=== PATIENT | female | born 1990 | race Caucasian/White ===

== ENCOUNTER 2017-07-07 00:17 | Inpatient (IN) | payer BC ==
[2017-07-07] MEDS ORDERED: Misoprostol 25 MCG (1/4 of 100 MCG) Tab ONE (20:32)
[2017-07-07] MEDS: Misoprostol 25 MCG (1/4 of 100 MCG) Tab VAG SCH (20:40)
[2017-07-07] MEDS ORDERED: Ondansetron 4 MG/2 ML SDV IVPUSH PRN (20:57)
[2017-07-07] MEDS ORDERED: Sodium Chloride 0.9% 10 ML Syringe FLUSH PRN (20:57)
[2017-07-07] MEDS ORDERED: Lidocaine 1% 50 ML MDV INJECT ONE (20:57)
--- NOTE | 2017-07-07 21:15 | PCM.LDHP ---
L&D History of Present Illness - General Date of Service: 07/07/17 Admit Problem/Dx: Patient Status Order with Admit Dx/Problem 07/07/17 20:57 Patient Status [ADT] Routine Admission Diagnosis/Problem Admission Diagnosis/Problem Normal Source of Information: Patient History Limitations: Reports: No Limitations - History of Present Illness Introduction:: Reason for admission: 40-3/7 week intrauterine , elective induction of labor History of present illness patient is a 26-year-old 1 para 0 white female was admitted for elective induction of labor. Her OVI was 07/04/2017 placing her at 40-3/7 weeks gestational age. She is admitted for Cytotec cervical ripening and Pitocin induction to follow. The medication, risks, benefits and alternatives including waiting for onset of natural labor discussed with the patient. She appears to understand, wishes to proceed. We do an history 1 para 0. OVI 07/04/2017 is based on a certain last menstrual period which started on 09/27/2016 and is supported by an ultrasound on 12/05/2016, 02/24/2017 and 04/09/2017. Patient's course relatively unremarkable. She was a centering patient. Her group B strep screen is negative. Watkins testing was negative. Patient plans to breast-feed. She declined genetic evaluation. She did have a corneal abrasion on the left side during the course of her . Her first visit was early in the at approximately 10 weeks gestation. On first full evaluation clinic her weight is 127.2 pounds last evaluation clinic was 153 6 pounds for a 26.4 pound weight gain. Vital signs remained stable throughout the course and her fundal height growth was appropriate. Laboratory testing and shows blood to be O+ with negative and may screen. Prescription nasal hemoglobin was 13.9 and platelets were 206,000. She is rubella immune. RPR is nonreactive. Hepatitis B surface antigen and HIV Novak were negative. Chlamydia and gonorrhea assays were both negative. Second trimester labs included a hemoglobin of 12.5-normal. Her platelets are 180,001 hour GTT was. Allergies: None Medications: vitamins daily Past medical history: 1. ASCUS changes on Pap smear 2005 Past surgical history: 1. Breast enlargement procedure 2014 2. Oral surgery 2006 Family history: Mother and father are alive and well. Father does have hypertension. 2 brothers are alive and well. Maternal grandmother is alive with a history of stroke, brain tumor-benign, sarcoidosis, adult-onset diabetes mellitus. Paternal grandfather alive in hospice care, has a rare cancer which is terminal. Paternal grandmother is alive with aneurysm on her heart. Paternal grandfather age 59. Paternal uncle with an MT in his 50s. No bleeding, clotting, or anesthesia problems noted in the family. Social history: Patient is . is Al. She lives in [place] and is a teacher at the middle school. She is a college graduate. She does not use any significant muscle alcohol, drugs or tobacco. Review of systems: In general patient hassignificant concerns. Has been relatively unremarkable . Skin: Negative Cardiovascular: No chest pain or exercise intolerance Respiratory no shortness of breath or respiratory infection symptoms Breasts: Changes associated . GI: Negative : Increased abdominal size secondary , no other concerns noted. Musculoskeletal: Occasional edema otherwise unremarkable Neurological: Normal. Physical exam: In general patient is well-developed well-nourished, pleasant female who appears in no acute distress and is alert and oriented 3. She appears her stated age Weight last evaluation clinic was 153.6 pounds pregravid weight 127.2. Height is 5 feet 3. Pregravid body mass index is 21.3. Most recent blood pressure was 117/64 on 06/29/2017. Skin is warm dry without lesions. HEENT, neck and back within normal aunts and prepped lungs are clear with good breath sounds in all lung herrera. Cardiovascular exam shows regular rate and rhythm without murmurs. Breasts exam is deferred at this time. Abdomen is protuberant with last fundal height in clinic at 39 cm. Baby in vertex presentation by Darell maneuvers. Cervix is closed-1 cm, 85% effaced, -3 station, posterior Extremities and neurological exam grossly within normal limits. - Related Data Allergies/Adverse Reactions: Allergies Allergy/AdvReac Type Severity Reaction Status Date / Time No Known Allergies Allergy Verified 07/07/17 20:47 Home Medications: Home Meds Vit W-Ca,Fe,FA(<1 mg) [ Vitamins] 1 tab PO DAILY 07/07/17 [ History] Past Medical History Gastrointestinal History: Reports: GERD, Other (See Below) Other Gastrointestinal History: does not take meds for GERD. Genitourinary History: Reports: UTI, Recurrent - Past Surgical History Female Surgical History: Reports: Breast Implant Social & Family History - Tobacco Use Smoking Status *Q: Never Smoker Years of Tobacco use: 1 Second Hand Smoke Exposure: No - Caffeine Use Caffeine Use: Reports: Coffee - Alcohol Use Days Per Week of Alcohol Use: 0 (No previous DWI, etc.) - Recreational Drug Use Recreational Drug Use: No Drug Use in Last 12 Months: No - Living Situation & Occupation Living situation: Reports: , Single, with Significant Other Occupation: Employed H&P Review of Systems - Review of Systems: Review Of Systems: See Below L&D Exam - Exam Exam: See Below - Vital Signs Weight: 70.806 kg Problem List Initiated/Reviewed/Updated: Yes Orders Last 24hrs: Active Orders 24 hr Category Date Time Status Patient Status [ADT] Routine ADT 07/07/17 20:57 Ordered Activity as Tolerated [RC] PFP Care 07/07/17 20:57 Ordered Communication Order [RC] ASDIRECTED Care 07/07/17 20:57 Ordered Heart Tones [RC] ASDIRECTED Care 07/07/17 20:58 Ordered Notify Provider [RC] PFP Care 07/07/17 20:57 Ordered Notify Provider [RC] PRN Care 07/07/17 20:57 Ordered Peripheral IV Care [RC] . DIRECTED Care 07/07/17 20:58 Ordered Pump Management, Intrathecal [RC] ASDIRECTED Care 07/07/17 20:58 Ordered Vital Signs [RC] PER UNIT ROUTINE Care 07/07/17 20:57 Ordered Regular Diet [DIET] Diet 07/07/17 Dinner Ordered CBC WITH AUTO DIFF [HEME] Stat Lab 07/07/17 20:57 Ordered Lactated Ringers [Ringers, Lactated] 1,000 ml Med 07/07/17 21:00 Ordered IV ASDIRECTED Lidocaine 1% [Xylocaine 1%] Med 07/07/17 20:57 Once 10 ml INJECT ONETIME ONE Misoprostol [Cytotec] Med 07/07/17 21:00 Ordered 25 mcg VAG Q3H Ondansetron [Zofran] Med 07/07/17 20:57 Ordered 4 mg IVPUSH Q4H PRN Vit W-Ca,Fe,FA(<1 mg) [ Vitamins] Med 07/08/17 09:00 Ordered 1 tab PO DAILY Sodium Chloride 0.9% [Saline Flush] Med 07/07/17 20:57 Ordered 10 ml FLUSH ASDIRECTED PRN Electronic Heart Tones Ext w TOCO [WOMSER] Oth 07/07/17 20:57 Ordered Routine Electronic Heart Tones Internal [WOMSER] Per Unit Oth 07/07/17 20:57 Ordered Routine Peripheral IV Insertion Adult [OM.PC] Routine Oth 07/07/17 20:57 Ordered Resuscitation Status Routine Resus Stat 07/07/17 20:57 Ordered Medication Orders Lactated Ringer's (Ringers, Lactated) 1,000 mls @ 100 mls/hr IV ASDIRECTED ADRIANA Lidocaine HCl (Xylocaine 1%) 10 ml INJECT ONETIME ONE Stop: 07/07/17 20:58 Misoprostol (Cytotec) 25 mcg VAG Q3H ADRIANA Ondansetron HCl (Zofran) 4 mg IVPUSH Q4H PRN PRN Reason: Nausea/Vomiting Prenat Multivit/[place]/Iron/Folic Ac ( Plus Iron) 1 each PO DAILY ADRIANA Sodium Chloride (Saline Flush) 10 ml FLUSH ASDIRECTED PRN PRN Reason: Keep Vein Open Assessment/Plan Comment:: 1. Intrauterine at 40-3/7 weeks gestational age, admitted for elective induction of labor 2. Relatively unremarkable . 3. Watkins testing 01/07/2017-negative 4. Group B strep screen negative 5. Patient plans to breast-feed. Plan: 1. Cytotec 25 g per vagina 3 doses then switched to Pitocin IV for induction. 2. CBC. 3. Intermittent monitoring 4. Anticipate normal spontaneous vaginal delivery
[2017-07-07] MEDS ORDERED: ePHEDrine 50 MG/ML SDV IVPUSH PRN (22:05)
[2017-07-07] MEDS ORDERED: diphenhydrAMINE 50 MG/ML SDV IVPUSH PRN (22:05)
[2017-07-07] MEDS ORDERED: fentaNYL 100 MCG/2 ML SDV EPIDUR PRN (22:05)
[2017-07-07] MEDS ORDERED: Bupivacaine/fentaNYL/NS 100 ML Bag EPIDUR SCH (22:15)
[2017-07-08] MEDS: Misoprostol 25 MCG (1/4 of 100 MCG) Tab VAG SCH ×2 (03:13)
[2017-07-08] MEDS ORDERED: Oxytocin/Lactated Ringers 10 UNIT/1,000 ML BAG IV SCH (03:15)
[2017-07-08] MEDS: Aluminum Hydroxide/Magnesium Hydroxide/Simethicone Susp 30 ML Cup PO PRN ×2 (03:21→17:13)
[2017-07-08] MEDS: Lactated Ringers 1,000 ML IV SCH ×7 (06:00→22:55)
--- NOTE | 2017-07-08 06:01 | PCM.SN ---
- Free Text/Narrative Note: Evaluation shows patient to be moderately uncomfortable. Vital signs are stable , patient is afebrile. Contractions occurring approximately every 2-5 minutes, moderate intensity. Cervix is 1 cm, 90% effaced, 0 station, vertex presentation, soft, intact. Anterior. heart tones: Reassuring with good variability and accelerations. Assessment/plan: Patient has finished 2 doses of Cytotec and will be started on Pitocin for induction this am. Epidural when necessary for labor analgesia.
[2017-07-08] MEDS ORDERED: Prenatal Multivitamin with Calcium/Folic Acid/Iron Tab PO SCH (09:00)
[2017-07-08] MEDS ORDERED: diphenhydrAMINE 50 MG/ML SDV IVPUSH PRN (09:27)
[2017-07-08] MEDS ORDERED: Ondansetron 4 MG/2 ML SDV IVPUSH PRN (09:27)
[2017-07-08] MEDS ORDERED: ePHEDrine 50 MG/ML SDV IVPUSH PRN (09:27)
[2017-07-08] MEDS ORDERED: fentaNYL 100 MCG/2 ML SDV EPIDUR PRN (09:27)
--- NOTE | 2017-07-08 09:27 | PCM.PREANE ---
Preanesthetic Assessment - Procedure Proposed Procedure: XU - Anesthesia/Transfusion/Family Hx Anesthesia History: Prior Anesthesia Without Reaction Family History of Anesthesia Reaction: No Transfusion History: No Prior Transfusion(s) - Review of Systems General: No Symptoms Pulmonary: No Symptoms Cardiovascular: No Symptoms Gastrointestinal: Other (GERD ) Neurological: No Symptoms Other: Reports: None - Physical Assessment NPO Status Date: 07/08/17 NPO Status Time: 08:00 O2 Sat by Pulse Oximetry: 100 Respiratory Rate: 15 Vital Signs: Last Vital Signs Temp 36.9 C 07/07/17 20:57 Pulse 99 07/07/17 20:57 Resp 15 07/07/17 20:57 BP 117/71 07/07/17 20:57 Pulse Ox 100 07/07/17 20:57 Height: 1.6 m Weight: 70.806 kg ASA Class: 2 Mental Status: Alert & Oriented x3 Airway Class: Mallampati = 1 Dentition: Reports: Normal Dentition Thyro-Mental Finger Breadths: 3 Mouth Opening Finger Breadths: 3 ROM/Head Extension: Full Lungs: Clear to Auscultation, Normal Respiratory Effort Cardiovascular: Regular Rate, Regular Rhythm - Lab Values: Laboratory Last Values WBC 8.89 K/mm3 (3.98-10.04) 07/07/17 20:15 RBC 5.11 M/mm3 (3.98-5.22) 07/07/17 20:15 Hgb 15.0 gm/L (11.2-15.7) 07/07/17 20:15 Hct 44.5 % (34.1-44.9) 07/07/17 20:15 MCV 87.1 fl (79.4-94.8) 07/07/17 20:15 MCH 29.4 pg (25.6-32.2) 07/07/17 20:15 MCHC 33.7 g/dl (32.2-35.5) 07/07/17 20:15 RDW Std Deviation 41.1 fL (36.4-46.3) 07/07/17 20:15 Plt Count 120 K/mm3 (182-369) L 07/07/17 20:15 MPV 11.4 fl (9.4-12.3) 07/07/17 20:15 Neut % (Auto) 73.6 % (34.0-71.1) H 07/07/17 20:15 Lymph % (Auto) 14.5 % (19.3-51.7) L 07/07/17 20:15 Crawford % (Auto) 9.7 % (4.7-12.5) 07/07/17 20:15 Eos % (Auto) 1.3 (0.7-5.8) 07/07/17 20:15 Baso % (Auto) 0.2 % (0.1-1.2) 07/07/17 20:15 Neut # (Auto) 6.54 K/mm3 (1.56-6.13) H 07/07/17 20:15 Lymph # (Auto) 1.29 K/mm3 (1.18-3.74) 07/07/17 20:15 Crawford # (Auto) 0.86 K/mm3 (0.24-0.36) H 07/07/17 20:15 Eos # (Auto) 0.12 K/mm3 (0.04-0.36) 07/07/17 20:15 Baso # (Auto) 0.02 K/mm3 (0.01-0.08) 07/07/17 20:15 - Allergies Allergies/Adverse Reactions: Allergies Allergy/AdvReac Type Severity Reaction Status Date / Time No Known Allergies Allergy Verified 07/07/17 20:47 - Blood Blood Available: No Product(s) Available: None - Anesthesia Plan Pre-Op Medication Ordered: None - Acknowledgements Anesthesia Type Planned: MAC Pt an Appropriate Candidate for the Planned Anesthesia: Yes Alternatives and Risks of Anesthesia Discussed w Pt/Guardian: Yes Pt/Guardian Understands and Agrees with Anesthesia Plan: Yes PreAnesthesia Questionnaire Gastrointestinal History: Reports: GERD, Other (See Below) Other Gastrointestinal History: does not take meds for GERD. Genitourinary History: Reports: UTI, Recurrent INTENSIVIST History: Reports: Other (See Below) Other OB/BYN History: HPV 2006. Colposcopy 2006 Psychiatric History: Reports: Anxiety - Past Surgical History Female Surgical History: Reports: Breast Implant - SUBSTANCE USE Smoking Status *Q: Never Smoker Second Hand Smoke Exposure: No Days Per Week of Alcohol Use: 0 (No previous DWI, etc.) Recreational Drug Use History: No - HOME MEDS Home Medications: Home Meds Vit W-Ca,Fe,FA(<1 mg) [ Vitamins] 1 tab PO DAILY 07/07/17 [ History] - CURRENT (IN HOUSE) MEDS Current Meds: Current Medications Al Hydroxide/Mg Hydroxide (Mag-Al Plus) 30 ml PO Q8H PRN PRN Reason: Heartburn Last Admin: 07/08/17 03:21 Dose: 30 ml Diphenhydramine HCl (Benadryl) 25 mg IVPUSH Q6H PRN PRN Reason: Itching Ephedrine Sulfate (Ephedrine Sulfate) 5 mg IVPUSH ASDIRECTED PRN PRN Reason: HYPOTENTSION Fentanyl (Sublimaze) 100 mcg EPIDUR Q3H PRN PRN Reason: PAIN Fentanyl/Bupivacaine HCl (Fentanyl/Bupivacaine/Ns 2 Mcg-0.125% 100 Ml) 100 ml EPIDUR ASDIRECTED ADRIANA Lactated Ringer's (Ringers, Lactated) 1,000 mls @ 100 mls/hr IV ASDIRECTED ADRIANA Last Admin: 07/08/17 06:00 Dose: 100 mls/hr Oxytocin/Lactated Ringer's (Pitocin In Lr 10 Units/1,000 Ml) 10 unit in 1,000 mls @ 12 mls/hr IV TITRATE ADRIANA; 2 MUNITS/MIN PRN Reason: Protocol Last Titration: 07/08/17 08:45 Dose: 6 munits/min, 36 mls/hr Ondansetron HCl (Zofran) 4 mg IVPUSH Q4H PRN PRN Reason: Nausea/Vomiting Prenat Multivit/Health Care Social Worker/Iron/Folic Ac ( Plus Iron) 1 each PO DAILY ADRIANA Sodium Chloride (Saline Flush) 10 ml FLUSH ASDIRECTED PRN PRN Reason: Keep Vein Open Discontinued Medications Lidocaine HCl (Xylocaine 1%) 10 ml INJECT ONETIME ONE Stop: 07/07/17 20:58 Misoprostol (Cytotec) Confirm Administered Dose 25 mcg .ROUTE .STK-MED ONE Stop: 07/07/17 20:33 Last Admin: 07/07/17 22:03 Dose: Not Given Misoprostol (Cytotec) 25 mcg VAG Q3H ADRIANA Stop: 07/08/17 03:01 Last Admin: 07/08/17 03:13 Dose: Not Given
[2017-07-08] MEDS ORDERED: Bupivacaine/fentaNYL/NS 100 ML Bag EPIDUR SCH (09:30)
[2017-07-08] MEDS ORDERED: Acetaminophen 325 MG Tab PO PRN (17:45)
[2017-07-09] MEDS ORDERED: Lidocaine 1% 50 ML MDV ONE (00:09)
--- NOTE | 2017-07-09 01:08 | PCM.SN ---
- Free Text/Narrative Note: Delivery note: Diane is a 26-year-old 1 now para 1001 white female who is admitted on the evening of 07/07/2017 for Cytotec cervical ripening. 40-4/7 weeks gestational age with an OVI of 07/04/2017. She had 2 doses of Cytotec 0.25 g3 hours apart. With this patient had significant cervical ripening became at least 1-2 cm dilated/90% effaced/0 station/mid position/soft. Pitocin was started at that time and patient progressed with labor induction. She made slow but steady progress and at approximately midday artificial rupture membranes was undertaken with resultant clear amniotic fluid. She made steady progression until 2028 hrs. at which time she became completely dilated. Epidural was used for labor analgesia. Patient was allowed to labor down. She began pushing at approximately 2108 hrs. At approximately 2350 hrs. patient became very fatigued and discussion was held with her concerning some vacuum extraction assistance. The procedure, risks, benefits, alternatives of care including continued pushing versus a were discussed in detail with the patient and her . They appeared to understand and wished to proceed with vacuum extraction delivery. Silastic cup was applied to the baby's head and over the course of 3 contractions patient delivered a baby in a direct occiput anterior position. Significant molding was noted. Vacuum negative pressure was released in between contractions. Contractions were short with pushing only for approximately 45 seconds each. No Pop offs were encountered. Midline episiotomy was made. Baby delivered with some difficulty. Large baby noted but no shoulder dystocia was noted. Baby was placed on mom's abdomen. The cord was clamped 2 and cut. Umbilical cord had 3 vessels present. She was taken to the warmer, dried and stimulated. Baby had Apgars of 7 and 9, a length of 21 inches, and weighed 3700 g (8 lbs. 3 oz.). The baby was born at 0017 hours on 07/09/2017. The patient is noted to have a partial third-degree laceration but no evidence of fourth degree laceration. The patient had an epidural on boardgiven her recently good analgesia. The area of the peritoneum had been further infiltrated with lidocaine 1% approximately 10 mL. The third-degree laceration was repaired in routine fashion and the remainder of the episiotomy was repaired fashion all with 3-0 Monocryl. No problems were encountered. Placenta then delivered at 0036 hours, complete and intact. It delivered in a [place] fashion. Rectal exam was performed at the end of the repair and no fourth degree laceration was noted. Estimated blood loss was 200 mL. Patient began nursing the baby. Condition: Good
[2017-07-09] MEDS ORDERED: Acetaminophen 325 MG Tab PO PRN (01:09)
[2017-07-09] MEDS ORDERED: Lanolin 100% Cream 7 GM Tube TOP PRN (01:09)
[2017-07-09] MEDS: Ibuprofen 600 MG Tab PO PRN ×5 (02:44→21:02)
[2017-07-09] MEDS: Witch Hazel Medicated Pads 100/Jar TOP PRN (02:45)
[2017-07-09] MEDS: Benzocaine/Menthol 20%-0.5% Spray 56 GM Canister TOP PRN (02:46)
--- NOTE | 2017-07-09 06:34 | PCM.SN ---
- Free Text/Narrative Note: Diane is doing well this morning. It is her day of delivery. Minimal lochia. Somewhat sore from pushing. Has been voiding without concerns. She is nursing without problems. Us Assessment/plan: Day of delivery. Routine care.
--- NOTE | 2017-07-09 07:09 | PCM48HPAN ---
Post Anesthesia Note - EVALUATION WITHIN 48HRS OF ANESTHETIC Vital Signs in Normal Range: Yes Respiratory Function Stable: Yes Airway Patent: Yes Cardiovascular Function Stable: Yes Hydration Status Stable: Yes Pain Control Satisfactory: Yes Nausea and Vomiting Control Satisfactory: Yes Mental Status Recovered: Yes - COMMENTS/OBSERVATIONS Free Text/Narrative:: Patient states epidural was patchy in areas of pain control. Patient states she is exhausted and appears very fatigued. Patient happy with SPOT [facility]AYER's overall bedside manner.
[2017-07-09] MEDS ORDERED: Bupivacaine 0.25% 10 ML SDV ONE (22:22)
[2017-07-09] MEDS: Docusate Sodium 100 MG Cap PO PRN (22:32)
[2017-07-10] MEDS: Ibuprofen 600 MG Tab PO PRN ×5 (01:35→21:21)
[2017-07-10] MEDS: Prenatal Multivitamin with Calcium/Folic Acid/Iron Tab PO SCH ×2 (07:51→13:30)
[2017-07-10] MEDS: Docusate Sodium 100 MG Cap PO PRN ×2 (07:51→21:22)
--- NOTE | 2017-07-10 11:51 | PCM.SN ---
- Free Text/Narrative Note: General patient is doing very well. Since still has her catheter in place. She had difficulty voiding last night, had had a residual urine of 1000 mL earlier in the day. Catheter was left in overnight. She will have it removed when she is up and about and will try to void again. Patient is afebrile, vital signs stable. Patient is up and around, ambulating reasonably well. She does not feel lightheaded or dizzy. Lochia is minimal. She is nursing with good results. Uterus is nontender, and umbilicus, firm. Legs were mildly edematous bilaterally . White blood count is 15. 55, hemoglobin is 17.8, platelet count is 130 Assessment: 1. day 1 reasonably well, anemia moderate severe but minimally symptomatic 2. In a retention yesterday. Catheter still in place will attempt catheter out later today. Plan: 1. Increase iron to 3 times a day 1 patient is discharged home will take stool softeners as needed 2. Decreased activity and increased fluid intake until hemoglobin increases. 3. Home tomorrow.
[2017-07-10] MEDS: Witch Hazel Medicated Pads 100/Jar TOP PRN (13:27)
[2017-07-10] MEDS: Benzocaine/Menthol 20%-0.5% Spray 56 GM Canister TOP PRN (21:21)
[2017-07-11] MEDS: Ibuprofen 600 MG Tab PO PRN ×2 (01:03→06:33)
[2017-07-11] MEDS: Prenatal Multivitamin with Calcium/Folic Acid/Iron Tab PO SCH (08:50)
[2017-07-11] MEDS: Docusate Sodium 100 MG Cap PO PRN (08:51)
--- NOTE | 2017-07-11 09:51 | PCM.SN ---
- Free Text/Narrative Note: Post Progress Note PPD # 2 Subjective: Doing well overall. Ambulating without difficulty. Lochia minimal. Voiding without difficulty. Tolerating regular diet without nausea or vomiting. Pain controlled with oral medications. Breast feeding with bottle supplementation with minimal difficulty. Objective: Vitals: Vital Signs - 24 hr 07/10/17 07/10/17 07/10/17 12:19 20:00 20:26 Temperature 36.4 C Temperature [ 36.7 C Temporal] Pulse, 88 109 H Peripheral Respiratory 16 16 Rate Blood Pressure 110/62 119/72 O2 Sat by Pulse 95 98 Oximetry 07/11/17 04:29 Temperature Temperature [ Temporal] Pulse, 86 Peripheral Respiratory 18 Rate Blood Pressure 96/64 O2 Sat by Pulse 97 Oximetry Physical Exam General: Alert and oriented, no acute distress Lungs: Clear to auscultation bilaterally Heart: Regular rate and rhythm Abdomen: Soft, minimal appropriate tenderness, non-distended, fundus midline, nontender, and below the umbilicus Extremities: Trace bilateral lower extremity edema to shins ASSESSMENT: 26-year-old female G 1 P 001 s/p vacuum-assisted vaginal delivery PPD #2, complicated by history of abnormal Pap smear and urinary retention on day #0 and 1, Pearce removed on day #1 and able to void without difficulty. PLAN: Doing well Breast feeding with bottle supplementation with minimal difficulty. Assist as needed Lochia minimal. Continue to monitor for appropriate lochia. Continue routine care Anticipate discharge home today Sha Barbour MD 9:50 AM 07/11/2017
--- NOTE | 2017-07-11 10:01 | PCM.DCSUM1 ---
Discharge Summary - Hospital Course Free Text/Narrative:: Delivery note: Diane is a 26-year-old 1 now para 1001 white female who is admitted on the evening of 07/07/2017 for Cytotec cervical ripening. 40-4/7 weeks gestational age with an OVI of 07/04/2017. She had 2 doses of Cytotec 0.25 g3 hours apart. With this patient had significant cervical ripening became at least 1-2 cm dilated/90% effaced/0 station/mid position/soft. Pitocin was started at that time and patient progressed with labor induction. She made slow but steady progress and at approximately midday artificial rupture membranes was undertaken with resultant clear amniotic fluid. She made steady progression until 2028 hrs. at which time she became completely dilated. Epidural was used for labor analgesia. Patient was allowed to labor down. She began pushing at approximately 2108 hrs. At approximately 2350 hrs. patient became very fatigued and discussion was held with her concerning some vacuum extraction assistance. The procedure, risks, benefits, alternatives of care including continued pushing versus a were discussed in detail with the patient and her . They appeared to understand and wished to proceed with vacuum extraction delivery. Silastic cup was applied to the baby's head and over the course of 3 contractions patient delivered a baby in a direct occiput anterior position. Significant molding was noted. Vacuum negative pressure was released in between contractions. Contractions were short with pushing only for approximately 45 seconds each. No Pop offs were encountered. Midline episiotomy was made. Baby delivered with some difficulty. Large baby noted but no shoulder dystocia was noted. Baby was placed on mom's abdomen. The cord was clamped 2 and cut. Umbilical cord had 3 vessels present. She was taken to the warmer, dried and stimulated. Baby had Apgars of 7 and 9, a length of 21 inches, and weighed 3700 g (8 lbs. 3 oz.). The baby was born at 0017 hours on 07/09/2017. The patient is noted to have a partial third-degree laceration but no evidence of fourth degree laceration. The patient had an epidural on boardgiven her recently good analgesia. The area of the peritoneum had been further infiltrated with lidocaine 1% approximately 10 mL. The third-degree laceration was repaired in routine fashion and the remainder of the episiotomy was repaired fashion all with 3-0 Monocryl. No problems were encountered. Placenta then delivered at 0036 hours, complete and intact. It delivered in a B[place]on fashion. Rectal exam was performed at the end of the repair and no fourth degree laceration was noted. Estimated blood loss was 200 mL. Patient began nursing the baby. Condition: Good HPI Initial Comments: Delivery note: Diane is a 26-year-old 1 now para 1001 white female who is admitted on the evening of 07/07/2017 for Cytotec cervical ripening. 40-4/7 weeks gestational age with an OVI of 07/04/2017. She had 2 doses of Cytotec 0.25 g3 hours apart. With this patient had significant cervical ripening became at least 1-2 cm dilated/90% effaced/0 station/mid position/soft. Pitocin was started at that time and patient progressed with labor induction. She made slow but steady progress and at approximately midday artificial rupture membranes was undertaken with resultant clear amniotic fluid. She made steady progression until 2028 hrs. at which time she became completely dilated. Epidural was used for labor analgesia. Patient was allowed to labor down. She began pushing at approximately 2108 hrs. At approximately 2350 hrs. patient became very fatigued and discussion was held with her concerning some vacuum extraction assistance. The procedure, risks, benefits, alternatives of care including continued pushing versus a were discussed in detail with the patient and her . They appeared to understand and wished to proceed with vacuum extraction delivery. Silastic cup was applied to the baby's head and over the course of 3 contractions patient delivered a baby in a direct occiput anterior position. Significant molding was noted. Vacuum negative pressure was released in between contractions. Contractions were short with pushing only for approximately 45 seconds each. No Pop offs were encountered. Midline episiotomy was made. Baby delivered with some difficulty. Large baby noted but no shoulder dystocia was noted. Baby was placed on mom's abdomen. The cord was clamped 2 and cut. Umbilical cord had 3 vessels present. She was taken to the warmer, dried and stimulated. Baby had Apgars of 7 and 9, a length of 21 inches, and weighed 3700 g (8 lbs. 3 oz.). The baby was born at 0017 hours on 07/09/2017. The patient is noted to have a partial third-degree laceration but no evidence of fourth degree laceration. The patient had an epidural on boardgiven her recently good analgesia. The area of the peritoneum had been further infiltrated with lidocaine 1% approximately 10 mL. The third-degree laceration was repaired in routine fashion and the remainder of the episiotomy was repaired fashion all with 3-0 Monocryl. No problems were encountered. Placenta then delivered at 0036 hours, complete and intact. It delivered in a [place] fashion. Rectal exam was performed at the end of the repair and no fourth degree laceration was noted. Estimated blood loss was 200 mL. Patient began nursing the baby. Condition: Good Brief History: Delivery note: Diane is a 26-year-old 1 now para 1001 white female who is admitted on the evening of 07/07/2017 for Cytotec cervical ripening. 40-4/7 weeks gestational age with an OVI of 07/04/2017. She had 2 doses of Cytotec 0.25 g3 hours apart. With this patient had significant cervical ripening became at least 1-2 cm dilated/90% effaced/0 station/mid position/soft. Pitocin was started at that time and patient progressed with labor induction. She made slow but steady progress and at approximately midday artificial rupture membranes was undertaken with resultant clear amniotic fluid. She made steady progression until 2028 hrs. at which time she became completely dilated. Epidural was used for labor analgesia. Patient was allowed to labor down. She began pushing at approximately 2108 hrs. At approximately 2350 hrs. patient became very fatigued and discussion was held with her concerning some vacuum extraction assistance. The procedure, risks, benefits, alternatives of care including continued pushing versus a were discussed in detail with the patient and her . They appeared to understand and wished to proceed with vacuum extraction delivery. Silastic cup was applied to the baby's head and over the course of 3 contractions patient delivered a baby in a direct occiput anterior position. Significant molding was noted. Vacuum negative pressure was released in between contractions. Contractions were short with pushing only for approximately 45 seconds each. No Pop offs were encountered. Midline episiotomy was made. Baby delivered with some difficulty. Large baby noted but no shoulder dystocia was noted. Baby was placed on mom's abdomen. The cord was clamped 2 and cut. Umbilical cord had 3 vessels present. She was taken to the warmer, dried and stimulated. Baby had Apgars of 7 and 9, a length of 21 inches, and weighed 3700 g (8 lbs. 3 oz.). The baby was born at 0017 hours on 07/09/2017. The patient is noted to have a partial third-degree laceration but no evidence of fourth degree laceration. The patient had an epidural on boardgiven her recently good analgesia. The area of the peritoneum had been further infiltrated with lidocaine 1% approximately 10 mL. The third-degree laceration was repaired in routine fashion and the remainder of the episiotomy was repaired fashion all with 3-0 Monocryl. No problems were encountered. Placenta then delivered at 0036 hours, complete and intact. It delivered in a [place] fashion. Rectal exam was performed at the end of the repair and no fourth degree laceration was noted. Estimated blood loss was 200 mL. Patient began nursing the baby. Condition: Good - Discharge Data Discharge Date: 07/11/17 Discharge Disposition: Home, Self-Care 01 Condition: Good - Discharge Diagnosis/Problem(s) (1) 40 weeks gestation of SNOMED Code(s): 28436945 ICD Code: Z3A.40 - 40 WEEKS GESTATION OF Status: Acute Current Visit: Yes (2) Vacuum extractor delivery, delivered SNOMED Code(s): 192069066 ICD Code: O66.5 - ATTEMPTED APPLICATION OF VACUUM EXTRACTOR AND FORCEPS Status: Acute Current Visit: Yes (3) Third degree laceration of perineum during delivery, SNOMED Code(s): 427984309 ICD Code: O70.20 - THIRD DEGREE PERINEAL LACERATION DURING DELIVERY, UNSP Status: Acute Current Visit: Yes (4) Abnormal Pap smear of cervix SNOMED Code(s): 565254254 ICD Code: R87.619 - UNSP ABNORMAL CYTOLOG FINDINGS IN SPECMN FROM CERVIX UTERI Status: Acute Current Visit: Yes - Patient Summary/Data Operative Procedure(s) Performed: Vacuum-assisted vaginal delivery with episiotomy Complications: Partial third-degree laceration repaired at time of delivery Consults: None Hospital Course: Aniyah Taylor is a 26-year-old G1 now P1001 who was admitted for elective induction of labor on 07/07/2017. At time of admission her cervix was closed. She was GBS negative. She was given 2 doses of Cytotec 25 mcg for cervical ripening. She was transitioned to Pitocin for augmentation of labor. She had artificial rupture membranes with clear fluid. She had an epidural for anesthesia. She progressed to complete and pushing but became fatigued during pushing. A midline episiotomy was made and she had a vacuum-assisted vaginal delivery on 07/10/2017 at 0017. Apgars of 7 and 9. weight of 3700 g (8 lbs. 3 oz.). The patient had a partial third-degree laceration that was repaired in normal fashion. Her course was complicated by urinary retention on day #0 and a Pearce catheter was placed for 24 hours. She was otherwise meeting milestones with ambulation without difficulty, tolerating regular diet without nausea or vomiting, pain controlled with oral medications and minimal lochia. She was breast-feeding with bottle supplementation without difficulty. On day #1 she had her Pearce catheter removed and she was able to void without difficulty. In the morning of day #2 she continued to meet all milestones as above. She desired to be discharged home in the morning of day #2. She will follow up with Dr. De Anda in the clinic in 2 weeks or earlier as needed. - Patient Instructions Diet: Regular Diet as Tolerated Activity: As Tolerated Activity, Other: Nothing in the vagina for 6 weeks Driving: May Drive Today Showering/Bathing: May Shower Notify Provider of: Fever, Increased Pain, Swelling and Redness, Drainage, Nausea and/or Vomiting - Discharge Plan Home Medications: Home Meds Vit W-Ca,Fe,FA(<1 mg) [ Vitamins] 1 tab PO DAILY 07/07/17 [ History] Acetaminophen [Tylenol] 650 mg PO Q6H PRN tablet 07/11/17 [Rx] Benzocaine/Menthol [Dermoplast Pain Relief Dewar] 1 spray TOP ASDIRECTED PRN canister 07/11/17 [Rx] Docusate Sodium [Colace] 100 mg PO BID PRN cap 07/11/17 [Rx] Ibuprofen [IJD: Ibuprofen] 600 mg PO Q4H PRN tablet 07/11/17 [Rx] Lanolin [Lansinoh HPA] 1 applic TOP ASDIRECTED PRN tube 07/11/17 [Rx] Patient Handouts: Disposable Sitz Bath, Vaginal Laceration, Pelvic Rest, Home Care Instructions for Mom, How to Take a Sitz Bath, Vaginal Delivery, Care After , Care of a Perineal Tear Referrals: Peng De Anda MD [Primary Care Provider] - (Follow-up in 2 weeks or earlier as needed for routine visit.) - Discharge Summary/Plan Comment DC Time >30 min.: No - Patient Data Vitals - Most Recent: Last Vital Signs Temp 36.7 C 07/10/17 20:00 Pulse 86 07/11/17 04:29 Resp 18 07/11/17 04:29 BP 96/64 07/11/17 04:29 Pulse Ox 97 07/11/17 04:29 Weight - Most Recent: 70.806 kg I&O - Last 24 hours: Intake & Output 07/10/17 07/11/17 07/11/17 22:59 06:59 14:59 Intake Total 0 Balance 0 Med Orders - Current: Current Medications Acetaminophen (Tylenol) 650 mg PO Q4H PRN PRN Reason: mild pain or fever Benzocaine/Menthol (Dermoplast Pain Relief Dewar) 0 gm TOP ASDIRECTED PRN PRN Reason: Perineal Comfort Measure Last Admin: 07/10/17 21:21 Dose: 1 canister Docusate Sodium (Colace) 100 mg PO BID PRN PRN Reason: Constipation Last Admin: 07/11/17 08:51 Dose: 100 mg Emollient Ointment (Lansinoh Hpa) 0 gm TOP ASDIRECTED PRN PRN Reason: Sore Nipples Ibuprofen (Motrin) 600 mg PO Q4H PRN PRN Reason: Mild pain or fever Last Admin: 07/11/17 06:33 Dose: 600 mg Prenat Multivit/Collier/Iron/Folic Ac ( Plus Iron) 1 each PO DAILY ADRIANA Last Admin: 07/11/17 08:50 Dose: 1 each Witch Olga (Tucks) 1 pad TOP ASDIRECTED PRN PRN Reason: Hemorrhoid pain Last Admin: 07/10/17 13:27 Dose: 1 canister Discontinued Medications Acetaminophen (Tylenol) 650 mg PO Q6H PRN PRN Reason: Headache/Pain Last Admin: 07/08/17 21:31 Dose: 650 mg Al Hydroxide/Mg Hydroxide (Mag-Al Plus) 30 ml PO Q8H PRN PRN Reason: Heartburn Last Admin: 07/08/17 17:13 Dose: 30 ml Bupivacaine HCl (Sensorcaine-Mpf 0.25%) 10 ml .ROUTE .STK-MED ONE Stop: 07/09/17 22:23 Diphenhydramine HCl (Benadryl) 25 mg IVPUSH Q6H PRN PRN Reason: Itching Diphenhydramine HCl (Benadryl) 25 mg IVPUSH Q6H PRN PRN Reason: Pruritis Ephedrine Sulfate (Ephedrine Sulfate) 5 mg IVPUSH ASDIRECTED PRN PRN Reason: HYPOTENTSION Ephedrine Sulfate (Ephedrine Sulfate) 5 mg IVPUSH ASDIRECTED PRN PRN Reason: Hypotension Fentanyl (Sublimaze) 100 mcg EPIDUR Q3H PRN PRN Reason: PAIN Fentanyl (Sublimaze) 100 mcg EPIDUR Q3H PRN PRN Reason: Pain Last Admin: 07/08/17 13:31 Dose: 100 mcg Fentanyl/Bupivacaine HCl (Fentanyl/Bupivacaine/Ns 2 Mcg-0.125% 100 Ml) 100 ml EPIDUR ASDIRECTED [facility] Last Admin: 07/08/17 20:46 Dose: 100 ml Fentanyl/Bupivacaine HCl (Fentanyl/Bupivacaine/Ns 2 Mcg-0.125% 100 Ml) 100 ml EPIDUR ASDIRECTED [facility] Last Admin: 07/08/17 13:33 Dose: 100 ml Lactated Ringer's (Ringers, Lactated) 1,000 mls @ 100 mls/hr IV ASDIRECTED [facility] Last Admin: 07/08/17 22:55 Dose: 500 mls/hr Oxytocin/Lactated Ringer's (Pitocin In Lr 10 Units/1,000 Ml) 10 unit in 1,000 mls @ 12 mls/hr IV TITRATE ADRIANA; 2 MUNITS/MIN PRN Reason: Protocol Last Titration: 07/08/17 23:25 Dose: 10 munits/min, 60 mls/hr Lidocaine HCl (Xylocaine 1%) 10 ml INJECT ONETIME ONE Stop: 07/07/17 20:58 Last Admin: 07/09/17 00:00 Dose: 10 ml Lidocaine HCl (Xylocaine 1%) Confirm Administered Dose 50 ml .ROUTE .STK-MED ONE Stop: 07/09/17 00:10 Misoprostol (Cytotec) Confirm Administered Dose 25 mcg .ROUTE .STK-MED ONE Stop: 07/07/17 20:33 Last Admin: 07/07/17 22:03 Dose: Not Given Misoprostol (Cytotec) 25 mcg VAG Q3H [facility] Stop: 07/08/17 03:01 Last Admin: 07/08/17 03:13 Dose: Not Given Ondansetron HCl (Zofran) 4 mg IVPUSH Q4H PRN PRN Reason: Nausea/Vomiting Ondansetron HCl (Zofran) 4 mg IVPUSH ONETIME PRN PRN Reason: Nausea/Vomiting Prenat Multivit/Collier/Iron/Folic Ac ( Plus Iron) 1 each PO DAILY [facility] Last Admin: 07/08/17 13:49 Dose: Not Given Sodium Chloride (Saline Flush) 10 ml FLUSH ASDIRECTED PRN PRN Reason: Keep Vein Open *Q Meaningful Use (DIS) - VTE *Q VTE Criteria *Q: - Stroke *Q Stroke Criteria *Q: - AMI *Q AMI Criteria *Q:
[2017-07-11 13:49] VITALS: BP 122/77
== END 2017-07-11 15:38 | disposition home or self-care (01) | DRG 560 ==
LOC: JD.OB 00:17 → OBSVTOIN 07-09 00:17
PROVIDERS: ADMIT Obstetrics & Gynecology; ATTEND Obstetrics & Gynecology
PROC: 10D07Z6 Extraction of Products of Conception, Vacuum, Via Natural or Artificial Opening (ICD-10-PCS; principal; 2017-07-09)
PROC: 0W8NXZZ Division of Female Perineum, External Approach (ICD-10-PCS; 2017-07-09)
PROC: 10907ZC Drainage of Amniotic Fluid, Therapeutic from Products of Conception, Via Natural or Artificial Opening (ICD-10-PCS; 2017-07-09)
PROC: 3E033VJ Introduction of Other Hormone into Peripheral Vein, Percutaneous Approach (ICD-10-PCS; 2017-07-09)
PROC: 3E0P7VZ Introduction of Hormone into Female Reproductive, Via Natural or Artificial Opening (ICD-10-PCS; 2017-07-09)
PROC: 00HU33Z Insertion of Infusion Device into Spinal Canal, Percutaneous Approach (ICD-10-PCS; 2017-07-09)
PROC: 3E0R3BZ Introduction of Anesthetic Agent into Spinal Canal, Percutaneous Approach (ICD-10-PCS; 2017-07-09)
DX: O70.20 Third degree perineal laceration during delivery, unspecified (principal); Z3A.41 41 weeks gestation of pregnancy; Z37.0 Single live birth
CPT/HCPCS: 36415; 51701; 51702; 59300; 59409; 85025; 85027; A9270-GY; J2590; J3010; J7120

== ENCOUNTER 2019-07-08 19:45 | Inpatient (IN) | payer BC ==
[2019-07-08] MEDS ORDERED: Nalbuphine 10 MG/ML Syringe IVPUSH PRN (20:03)
[2019-07-08] MEDS ORDERED: Sodium Chloride 0.9% 10 ML Syringe FLUSH PRN (20:03)
[2019-07-08] MEDS ORDERED: Lactated Ringers 1,000 ML IV SCH (20:15)
[2019-07-08] MEDS ORDERED: Oxytocin/Lactated Ringers 10 UNIT/1,000 ML BAG IV SCH ×2 (20:15→21:29)
[2019-07-08] MEDS ORDERED: Lidocaine 1% 50 ML MDV INJECT ONE (20:35)
[2019-07-08] MEDS: Ibuprofen 600 MG Tab PO PRN (20:50)
--- NOTE | 2019-07-08 21:23 | PCM.LDHP ---
L&D History of Present Illness - General Date of Service: 07/08/19 Admit Problem/Dx: Patient Status Order with Admit Dx/Problem 07/08/19 20:03 Patient Status [ADT] Routine Admission Diagnosis/Problem Admission Diagnosis/Problem Vaginal delivery Source of Information: Patient History Limitations: Reports: No Limitations - History of Present Illness Introduction:: Diane Taylor is a 28 year old female at 39 weeks 4 days by LMP (OVI ) who presents in advanced labor. She reports that she started having contractions about 4:30 PM that were about 6 minutes apart and kept getting closer together and stronger. She denies any abnormal discharge or leaking of fluid. Denies any vaginal bleeding. Reports good movement. Timing/Duration: Reports: sudden onset (Around 4:30 PM), getting worse (Every 6 minutes for contractions and getting very strong) Location, : Reports: Lower back, Pelvic, Uterus Quality: Reports: Pressure, Throbbing Severity: Severe Improves with: Reports: None Worsens with: Reports: None Associated Symptoms: Denies: vaginal bleeding, vaginal discharge, vaginal fluid Present Illness Comments:: Diane Taylor is a 28 year old female at 39 weeks 4 days by LMP (OVI ) who presents in advanced labor. She had routine care with Dr. Amato starting at 10 weeks gestational age. She received flu vaccine on and Tdap vaccine on 04/21/2019. Did not have any significant complications during this . Her is complicated by: * History of third-degree laceration after episiotomy with last delivery * History of vacuum-assisted vaginal delivery with last * Gastroesophageal reflux disease * History of breast augmentation labs Blood type: O+ Antibody screen: Negative First trimester hematocrit/hemoglobin: 39.5%/13.7 on 12/16/2018 Platelets: 183 on 12/16/2018 Urine culture: Negative Rubella status: Immune Hepatitis B surface antigen: Negative RPR: Negative HIV: Negative Gonorrhea: Negative Chlamydia: Negative One hour glucose tolerance test: 99 Second trimester hemoglobin: 13.1 on 04/21/2019 Platelets: 175 on 04/21/2019 GBS status: Negative - Related Data Allergies/Adverse Reactions: Allergies Allergy/AdvReac Type Severity Reaction Status Date / Time No Known Allergies Allergy Verified 07/07/17 20:47 Home Medications: Home Meds Vit Calc,Iron,Folic [ Vitamins] 1 tab PO DAILY 07/07/17 [ History] Acetaminophen [Tylenol] 650 mg PO Q6H PRN tablet 07/11/17 [Rx] Benzocaine/Menthol [Dermoplast Pain Relief [place]] 1 spray TOP ASDIRECTED PRN canister 07/11/17 [Rx] Docusate Sodium [Colace] 100 mg PO BID PRN cap 07/11/17 [Rx] Ibuprofen [IJD: Ibuprofen] 600 mg PO Q4H PRN tablet 07/11/17 [Rx] Lanolin [Lansinoh HPA] 1 applic TOP ASDIRECTED PRN tube 07/11/17 [Rx] Past Medical History Gastrointestinal History: Reports: GERD, Other (See Below) Other Gastrointestinal History: does not take meds for GERD. Genitourinary History: Reports: UTI, Recurrent [employer]IST History: Reports: Other (See Below) : 2 Para: 1 Other OB/BYN History: HPV 2005. Colposcopy 2005 Psychiatric History: Reports: Anxiety - Past Surgical History Female Surgical History: Reports: Breast Implant Social & Family History - Family History Family Medical History: Noncontributory - Tobacco Use Smoking Status *Q: Never Smoker - Tobacco Core Measures Tobacco Use/Smoking Within Last 30 Days: No Smokeless Tobacco Use in Last 30 Days: No - Caffeine Use Caffeine Use: Reports: Coffee - Alcohol Use Alcohol Use History: No - Recreational Drug Use Recreational Drug Use: No Drug Use in Last 12 Months: No - Living Situation & Occupation Living situation: Reports: , Single, with Significant Other Occupation: Employed H&P Review of Systems - Review of Systems: Review Of Systems: See Below General: Denies: Fever (Reports that she felt warm at home but did not measure temperature), Chills, Malaise, Weakness, Fatigue HEENT: Reports: Sinus Congestion. Denies: Headaches, Rhinitis, Post Nasal Drip , Sore Throat, Visual Changes Pulmonary: Denies: Shortness of Breath, Wheezing, Pleuritic Chest Pain, Cough Cardiovascular: Denies: Chest Pain, Palpitations, Dyspnea on Exertion, Orthopnea Gastrointestinal: Denies: Abdominal Pain, Constipation, Diarrhea, Nausea, Vomiting Genitourinary: Denies: Dysuria, Frequency, Burning, Pain, Urgency Musculoskeletal: Reports: Back Pain (And hip pain of ) Skin: Denies: Rash, Lesions Psychiatric: Denies: Depression, Anxiety Neurological: Denies: Headache L&D Exam - Exam Exam: See Below - OB Specific Contraction Duration (sec): 45-60 Contraction Frequency (min): 2-3 Contraction Intensity: Strong Movement: Active Heart Tones: Present Heart Tones per Min: 130 (+15 x 15 accelerations, no decelerations noted) Heart Rate (FHR) Variability: Moderate (6-25 bmp) Presentation: Vertex - Cornelius Score Cornelius Score Cervix Position: Anterior Cornelius Score Consistency: Soft Cornelius Score Effacement: >80% (100%) Cornelius Score Dilation: > 5 cm (8 cm per nurses exam) Cornelius Score 's Station: +1, +2 (+2) Cornelius Score Total: 13 - Exam General: Alert, Oriented HEENT: Conjunctiva Clear, EOMI Neck: Supple, Trachea Midline Lungs: Clear to Auscultation, Normal Respiratory Effort Cardiovascular: Regular Rate, Regular Rhythm GI/Abdominal Exam: Soft, Non-Tender, No Distention, Other (Gravid). No: Guarding, Rigid, Rebound Genitourinary: Normal external exam Back Exam: Normal Inspection Extremities: Normal Inspection, No Pedal Edema Skin: Warm, Dry, Intact Psychiatric: Alert, Normal Affect, Normal Mood - Problem List (1) 39 weeks gestation of SNOMED Code(s): 56777870 ICD Code: Z3A.39 - 39 WEEKS GESTATION OF Status: Acute Current Visit: Yes (2) History of third degree perineal laceration SNOMED Code(s): 668842859 ICD Code: Z87.59 - PERSONAL HISTORY OF COMP OF PREG, CHLDBRTH AND THE PUERP Status: Acute Current Visit: Yes (3) History of vacuum extraction assisted delivery SNOMED Code(s): 974146922 ICD Code: Z87.59 - PERSONAL HISTORY OF COMP OF PREG, CHLDBRTH AND THE PUERP Status: Acute Current Visit: Yes (4) GERD (gastroesophageal reflux disease) SNOMED Code(s): 416523608 ICD Code: K21.9 - GASTRO-ESOPHAGEAL REFLUX DISEASE WITHOUT ESOPHAGITIS Status: Acute Current Visit: Yes Problem List Initiated/Reviewed/Updated: Yes Orders Last 24hrs: Active Orders 24 hr Category Date Time Status Patient Status Manage Transfer [TRANSFER] Routine ADT 07/08/19 21:09 Ordered Patient Status [ADT] Routine ADT 07/08/19 20:03 Active Activity as Tolerated [RC] PFP Care 07/08/19 20:03 Active Communication Order [RC] ASDIRECTED Care 07/08/19 20:03 Active Heart Tones [RC] ASDIRECTED Care 07/08/19 20:04 Active Non Stress Test [RC] PER UNIT ROUTINE Care 07/08/19 20:03 Active Notify Provider [RC] PFP Care 07/08/19 20:03 Active Notify Provider [RC] PRN Care 07/08/19 20:03 Active Peripheral IV Care [RC] . DIRECTED Care 07/08/19 20:04 Active Vital Signs [RC] PER UNIT ROUTINE Care 07/08/19 20:03 Active Regular Diet [DIET] Diet 07/08/19 Breakfast Active CBC WITH AUTO DIFF [HEME] Routine Lab 07/08/19 20:03 Ordered RAPID PLASMA REAGIN,RPR [CHEM] Routine Lab 07/08/19 20:03 Ordered Lactated Ringers [Ringers, Lactated] 1,000 ml Med 07/08/19 20:15 Active IV ASDIRECTED Nalbuphine [Nubain] Med 07/08/19 20:03 Active 10 mg IVPUSH Q2H PRN Oxytocin/Lactated Ringers [Pitocin in LR 10 Units/1,000 Med 07/08/19 20:15 Active ML] 10 unit in 1,000 ml IV .CONTINUOUS Sodium Chloride 0.9% [Saline Flush] Med 07/08/19 20:03 Active 10 ml FLUSH ASDIRECTED PRN Electronic Heart Tones Ext w TOCO [WOMSER] Oth 07/08/19 20:03 Ordered Routine Electronic Heart Tones Internal [WOMSER] Per Unit Oth 07/08/19 20:03 Ordered Routine Peripheral IV Insertion Adult [OM.PC] Routine Oth 07/08/19 20:03 Ordered Resuscitation Status Routine Resus Stat 07/08/19 20:03 Ordered Medication Orders Lactated Ringer's (Ringers, Lactated) 1,000 mls @ 100 mls/hr IV ASDIRECTED ADRIANA Oxytocin/Lactated Ringer's (Pitocin In Lr 10 Units/1,000 Ml) 10 unit in 1,000 mls @ 500 mls/hr IV .CONTINUOUS ADRIANA Last Admin: 07/08/19 20:50 Dose: 500 mls/hr Nalbuphine HCl (Nubain) 10 mg IVPUSH Q2H PRN PRN Reason: Pain Sodium Chloride (Saline Flush) 10 ml FLUSH ASDIRECTED PRN PRN Reason: Keep Vein Open Assessment/Plan Comment:: Refer to observation for advanced labor with cervical dilation of [address] IV May have small amounts of regular diet Activity as tolerated Declines pain medications during labor Plans to breast-feed after delivery Anticipate vaginal delivery unless otherwise indicated H&P obtained prior to delivery but note written after delivery Sha Barbour MD 9:30 PM 07/08/2019
[2019-07-08] MEDS ORDERED: Docusate Sodium 100 MG Cap PO PRN (21:29)
[2019-07-08] MEDS ORDERED: Acetaminophen 325 MG Tab PO PRN (21:29)
[2019-07-08] MEDS ORDERED: Witch Hazel Medicated Pads 40/Jar TOP PRN (21:29)
[2019-07-08] MEDS ORDERED: Magnesium Hydroxide 400 MG/5 ML Susp 30 ML Cup PO PRN (21:29)
[2019-07-08] MEDS ORDERED: Benzocaine/Menthol 20%-0.5% Spray 56 GM Canister TOP PRN (21:29)
[2019-07-08] MEDS ORDERED: Hydrocortisone Acetate 25 MG Supp RECTAL PRN (21:29)
--- NOTE | 2019-07-08 21:55 | PCM.DEL ---
L & D Note - General Info Date of Service: 07/08/19 Mother's Due Date: 07/11/19 - Delivery Note Labor: Spontaneous Delivery Outcome: Livebirth Infant Delivery Method: Spontaneous Vaginal Delivery-Single Presentation: Right Occiput Anterior (GINNY) Nuchal Cord: None Anesthesia Type: Local (with perineal repair) Anesthetic: Lidocaine (Xylocaine) 1% Plain Local Anesthetic Volume: Other (8 cc) Amniotic Fluid Description: Clear Episiotomy Type: None Laceration: 2nd Degree (midline perineal, repaired with 3-0 Vicryl) Suture type: Vicryl Suture size: 3-0 Placenta: Intact, Spontaneous, Abnormal (Succenturiate lobe and velamentous cord insertion) Cord: 3 Vessels Estimated Blood Loss: 300 Resuscitation Needed: No [place]: Bulb Syringe, Stimulated, Warmed, [place] Used Provider: Sha Barbour Score 1 min: 8 Score 5 min: 9 Second Stage Interventions: Reports: Pushing, Reverse Squat (Initially then moved to left side), Pushing Effectively, Pushing, Left Side Delivery Comments (Free Text/Narrative):: Stage I: Diane Taylor was admitted for advanced spontaneous labor. On admission her cervix was dilated to 8 cm. She was GBS negative. She had spontaneous rupture of membranes. She progressed to complete and pushing. Stage II: On 07/08/2019 she had a normal vaginal delivery of a live female infant at 20:28. Apgars of 8 & 9. Weight and length unavailable at time of note. There was no nuchal cord. Infant was delivered in GINNY position. The cord was doubly clamped and cut by father of the after the cord had stopped pulsating after approximately 2 minutes. Infant was placed on mother's abdomen. Stage III: She had a spontaneous delivery of an intact placenta in Cedric presentation. Three vessel cord. Examination of the placenta showed a small succenturiate lobe as well as velamentous cord insertion she was given pitocin and fundal massage. She had second-degree midline perineal laceration that was repaired with 3-0 Vicryl. Evaluation was performed to check for third-degree laceration due to history of third-degree laceration with episiotomy. Muscle capsule intact on exam. Mom and baby were stable to recovery. EBL of 300 mL. Sah Barbour MD 9:47 PM 07/08/2019 - General Info Date of Service: 07/08/19 - Patient Data Weight - Most Recent: 67.585 kg Med Orders - Current: Current Medications Acetaminophen (Tylenol) 650 mg PO Q6H PRN PRN Reason: mild pain or fever Benzocaine/Menthol (Dermoplast Pain Relief [place]) 0 gm TOP ASDIRECTED PRN PRN Reason: Perineal Comfort Measure Docusate Sodium (Colace) 100 mg PO BID PRN PRN Reason: Constipation Hydrocortisone Acetate (Anucort-Hc) 25 mg RECTAL BID PRN PRN Reason: Hemorrhoid pain Oxytocin/Lactated Ringer's (Pitocin In Lr 10 Units/1,000 Ml) 10 unit in 1,000 mls @ 100 mls/hr IV TITRATE ADRIANA; Protocol Ibuprofen (Motrin) 600 mg PO Q6H PRN PRN Reason: Mild pain or fever Last Admin: 07/08/19 20:50 Dose: 600 mg Magnesium Hydroxide (Milk Of Magnesia) 30 ml PO BEDTIME PRN PRN Reason: Constipation Prenat Multivit/Risk Control Director/Iron/Folic Ac ( Plus Iron) 1 each PO DAILY ADRIANA Vasquez Espinoza (Tucks) 1 pad TOP ASDIRECTED PRN PRN Reason: Perineal Comfort Measure Discontinued Medications Lactated Ringer's (Ringers, Lactated) 1,000 mls @ 100 mls/hr IV ASDIRECTED ADRIANA Oxytocin/Lactated Ringer's (Pitocin In Lr 10 Units/1,000 Ml) 10 unit in 1,000 mls @ 500 mls/hr IV .CONTINUOUS ADRIANA Last Admin: 07/08/19 20:50 Dose: 500 mls/hr Lidocaine HCl (Xylocaine 1%) 50 ml INJECT ONETIME ONE Stop: 07/08/19 20:36 Nalbuphine HCl (Nubain) 10 mg IVPUSH Q2H PRN PRN Reason: Pain Sodium Chloride (Saline Flush) 10 ml FLUSH ASDIRECTED PRN PRN Reason: Keep Vein Open - Problem List & Annotations (1) 39 weeks gestation of SNOMED Code(s): 32316912 Code(s): Z3A.39 - 39 WEEKS GESTATION OF Status: Acute Current Visit: Yes (2) History of third degree perineal laceration SNOMED Code(s): 713505800 Code(s): Z87.59 - PERSONAL HISTORY OF COMP OF PREG, CHLDBRTH AND THE PUERP Status: Acute Current Visit: Yes (3) History of vacuum extraction assisted delivery SNOMED Code(s): 851536635 Code(s): Z87.59 - PERSONAL HISTORY OF COMP OF PREG, CHLDBRTH AND THE PUERP Status: Acute Current Visit: Yes (4) GERD (gastroesophageal reflux disease) SNOMED Code(s): 654856101 Code(s): K21.9 - GASTRO-ESOPHAGEAL REFLUX DISEASE WITHOUT ESOPHAGITIS Status: Acute Current Visit: Yes (5) Vaginal delivery SNOMED Code(s): 120853554 Code(s): O80 - ENCOUNTER FOR FULL-TERM UNCOMPLICATED DELIVERY Status: Acute Current Visit: Yes (6) Second degree perineal laceration during delivery SNOMED Code(s): 9535752 Code(s): O70.1 - SECOND DEGREE PERINEAL LACERATION DURING DELIVERY Status: Acute Current Visit: Yes (7) Velamentous insertion of umbilical cord, third trimester SNOMED Code(s): 15674791, 40590405 Code(s): O43.123 - VELAMENTOUS INSERTION OF UMBILICAL CORD, THIRD TRIMESTER Status: Acute Current Visit: Yes (8) Placenta succenturiata in third trimester SNOMED Code(s): 28843684, 51950857 Code(s): O43.193 - OTHER MALFORMATION OF PLACENTA, THIRD TRIMESTER Status: Acute Current Visit: Yes - Problem List Review Problem List Initiated/Reviewed/Updated: Yes - My Orders Last 24 Hours: My Active Orders 07/08/19 20:03 Activity as Tolerated [RC] PFP Communication Order [RC] ASDIRECTED Non Stress Test [RC] PER UNIT ROUTINE Notify Provider [RC] PFP Notify Provider [RC] PRN Vital Signs [RC] PER UNIT ROUTINE Resuscitation Status Routine 07/08/19 20:04 Heart Tones [RC] ASDIRECTED Peripheral IV Care [RC] . DIRECTED 07/08/19 21:29 Patient Status [ADT] Routine Activity as Tolerated [RC] PER UNIT ROUTINE May Shower [RC] ASDIRECTED Notify Provider Vital Signs [RC] ASDIRECTED Vital Signs [RC] ASDIRECTED Acetaminophen [Tylenol] 650 mg PO Q6H PRN Benzocaine/Menthol [Dermoplast Pain Relief [place]] See Dose Instructions TOP ASDIRECTED PRN Docusate Sodium [Colace] 100 mg PO BID PRN Hydrocortisone Acetate [Anucort-HC] 25 mg RECTAL BID PRN Ibuprofen [Motrin] 600 mg PO Q6H PRN Magnesium Hydroxide [Milk of Magnesia] 30 ml PO BEDTIME PRN Oxytocin/Lactated Ringers [Pitocin in LR 10 Units/1,000 ML] 10 unit in 1,000 ml IV TITRATE Witch Olga [Tucks] 1 pad TOP ASDIRECTED PRN Assess Lochia [WOMSER] Per Unit Routine Assess Uterine Involution [WOMSER] Per Unit Routine Breast Pump [WOMSER] Per Unit Routine Heat Therapy [OM.PC] PRN Ice Therapy [OM.PC] Per Unit Routine Medication Administration Instruction [OM.PC] Routine Perineal Care [OM.PC] Per Unit Routine Peripheral IV Discontinue [OM.PC] Routine Sitz Bath [OM.PC] Per Unit Routine 07/08/19 Dinner Regular Diet [DIET] 07/09/19 09:00 Vit with Ca/FA/Iron [ Plus Iron] 1 each PO DAILY 07/09/19 21:29 Heat Therapy [OM.PC] PRN - Plan Plan:: Admit to inpatient following normal spontaneous vaginal delivery Continue Pitocin per unit protocol following delivery of placenta and lactated Ringer's until tolerating regular diet Regular diet Vitals per unit routine Ibuprofen and Tylenol for pain control Assist with breast-feeding as needed Continue to monitor lochia Anticipate discharge home on day #1 or #2 depending on status with late timing of delivery Sha Barbour MD 9:47 PM 07/08/2019
[2019-07-09] MEDS: Ibuprofen 600 MG Tab PO PRN ×3 (03:22→21:34)
[2019-07-09] MEDS ORDERED: Prenatal Multivitamin with Calcium/Folic Acid/Iron Tab PO SCH (09:00)
--- NOTE | 2019-07-09 09:39 | PCM.SN ---
- Free Text/Narrative Note: Post Progress Note PPD #1 Subjective: Doing well overall. Ambulating without difficulty. Lochia minimal. Voiding without difficulty. Tolerating regular diet without nausea or vomiting. Pain minimal and able to be controlled with oral medications. Breast-feeding with minimal difficulty. Objective: Vitals: Vital Signs - 24 hr 07/08/19 07/09/19 22:00 04:00 Temperature 36.2 C Temperature [ 36.7 C Temporal] Pulse, 83 Peripheral Pulse, 99 Peripheral [ Brachial] Respiratory 14 14 Rate Blood Pressure 114/65 Blood Pressure 123/59 L [Upper Arm] O2 Sat by Pulse 98 Oximetry Physical Exam General: Alert and oriented, no acute distress Lungs: Clear to auscultation bilaterally Heart: Regular rate and rhythm Abdomen: Soft, minimal appropriate tenderness, non-distended, fundus midline, nontender, and 1 fingerbreadth below the umbilicus Extremities: No edema Laboratory Tests 07/08/19 Range/Units 23:25 WBC 16.94 H (3.98-10.04) K/mm3 RBC 4.25 (3.98-5.22) M/mm3 Hgb 12.9 D (11.2-15.7) gm/dl Hct 38.8 (34.1-44.9) % MCV 91.3 (79.4-94.8) fl MCH 30.4 (25.6-32.2) pg MCHC 33.2 (32.2-35.5) g/dl RDW Std Deviation 42.5 (36.4-46.3) fL Plt Count 165 L (182-369) K/mm3 MPV 11.2 (9.4-12.3) fl Neutrophils % (Manual) 87 H (40-60) % Band Neutrophils % 0 (0-10) % Lymphocytes % (Manual) 10 L (20-40) % Atypical Lymphs % 0 % Monocytes % (Manual) 3 (2-10) % Eosinophils % (Manual) 0 L (0.7-5.8) % Basophils % (Manual) 0 L (0.1-1.2) Platelet Estimate Adequate RBC Morph Comment Normal ASSESSMENT: 28-year-old female -0-0-2 s/p normal vaginal delivery PPD #1, complicated by history of active assisted vaginal delivery and third-degree laceration with episiotomy in previous and gastroesophageal reflux disease PLAN: Doing well Breast-feeding with minimal difficulty. Assist as needed Lochia minimal. Continue to monitor for appropriate lochia. Continue routine care Anticipate discharge home today if able to be discharged Sha Barbour MD 9:39 AM 07/09/2019
--- NOTE | 2019-07-09 10:01 | PCM.DCSUM1 ---
Discharge Summary - Hospital Course Free Text/Narrative:: - General Info Date of Service: 07/08/19 Mother's Due Date: 07/11/19 - Delivery Note Labor: Spontaneous Delivery Outcome: Livebirth Infant Delivery Method: Spontaneous Vaginal Delivery-Single Presentation: Right Occiput Anterior (GINNY) Nuchal Cord: None Anesthesia Type: Local (with perineal repair) Anesthetic: Lidocaine (Xylocaine) 1% Plain Local Anesthetic Volume: Other (8 cc) Amniotic Fluid Description: Clear Episiotomy Type: None Laceration: 2nd Degree (midline perineal, repaired with 3-0 Vicryl) Suture type: Vicryl Suture size: 3-0 Placenta: Intact, Spontaneous, Abnormal (Succenturiate lobe and velamentous cord insertion) Cord: 3 Vessels Estimated Blood Loss: 300 Resuscitation Needed: No [place]: Bulb Syringe, Stimulated, Warmed, [place] Used Provider: Sha Barbour Score 1 min: 8 Score 5 min: 9 Second Stage Interventions: Reports: Pushing, Reverse Squat (Initially then moved to left side), Pushing Effectively, Pushing, Left Side Delivery Comments (Free Text/Narrative):: Stage I: Diane Taylor was admitted for advanced spontaneous labor. On admission her cervix was dilated to 8 cm. She was GBS negative. She had spontaneous rupture of membranes. She progressed to complete and pushing. Stage II: On 07/08/2019 she had a normal vaginal delivery of a live female at 20:28. Apgars of 8 & 9. Weight and length unavailable at time of note. There was no nuchal cord. was delivered in GINNY position. The cord was doubly clamped and cut by father of the after the cord had stopped pulsating after approximately 2 minutes. Infant was placed on mother's abdomen. Stage III: She had a spontaneous delivery of an intact placenta in Cedric presentation. Three vessel cord. Examination of the placenta showed a small succenturiate lobe as well as velamentous cord insertion she was given pitocin and fundal massage. She had second-degree midline perineal laceration that was repaired with 3-0 Vicryl. Evaluation was performed to check for third-degree laceration due to history of third-degree laceration with episiotomy. Muscle capsule intact on exam. Mom and baby were stable to recovery. EBL of 300 mL. HPI Initial Comments: - General Info Date of Service: 07/08/19 Mother's Due Date: 07/11/19 - Delivery Note Labor: Spontaneous Delivery Outcome: Livebirth Delivery Method: Spontaneous Vaginal Delivery-Single Presentation: Right Occiput Anterior (GINNY) Nuchal Cord: None Anesthesia Type: Local (with perineal repair) Anesthetic: Lidocaine (Xylocaine) 1% Plain Local Anesthetic Volume: Other (8 cc) Amniotic Fluid Description: Clear Episiotomy Type: None Laceration: 2nd Degree (midline perineal, repaired with 3-0 Vicryl) Suture type: Vicryl Suture size: 3-0 Placenta: Intact, Spontaneous, Abnormal (Succenturiate lobe and velamentous cord insertion) Cord: 3 Vessels Estimated Blood Loss: 300 Resuscitation Needed: No : Bulb Syringe, Stimulated, Warmed, [place] Used Provider: Sha Barbour Score 1 min: 8 Score 5 min: 9 Second Stage Interventions: Reports: Pushing, Reverse Squat (Initially then moved to left side), Pushing Effectively, Pushing, Left Side Delivery Comments (Free Text/Narrative):: Stage I: Diane Taylor was admitted for advanced spontaneous labor. On admission her cervix was dilated to 8 cm. She was GBS negative. She had spontaneous rupture of membranes. She progressed to complete and pushing. Stage II: On 07/08/2019 she had a normal vaginal delivery of a live female at 20:28. Apgars of 8 & 9. Weight and length unavailable at time of note. There was no nuchal cord. was delivered in GINNY position. The cord was doubly clamped and cut by father of the after the cord had stopped pulsating after approximately 2 minutes. was placed on mother's abdomen. Stage III: She had a spontaneous delivery of an intact placenta in Cedric presentation. Three vessel cord. Examination of the placenta showed a small succenturiate lobe as well as velamentous cord insertion she was given pitocin and fundal massage. She had second-degree midline perineal laceration that was repaired with 3-0 Vicryl. Evaluation was performed to check for third-degree laceration due to history of third-degree laceration with episiotomy. Muscle capsule intact on exam. Mom and baby were stable to recovery. EBL of 300 mL. Brief History: - General Info. Date of Service: 07/08/19. Mother's Due Date: 07/11/19. - Delivery Note. Labor: Spontaneous. Delivery Outcome: Livebirth. Infant Delivery Method: Spontaneous Vaginal Delivery-Single. Presentation : Right Occiput Anterior (GINNY). Nuchal Cord: None. Anesthesia Type: Local ( with perineal repair). Anesthetic: Lidocaine (Xylocaine) 1% Plain. Local Anesthetic Volume: Other (8 cc). Amniotic Fluid Description: Clear. Episiotomy Type: None. Laceration: 2nd Degree (midline perineal, repaired with 3-0 Vicryl). Suture type: Vicryl. Suture size: 3-0. Placenta: Intact, Spontaneous, Abnormal (Succenturiate lobe and velamentous cord insertion). Cord : 3 Vessels. Estimated Blood Loss: 300. Resuscitation Needed: No. : Bulb Syringe, Stimulated, Warmed, [place] Used. Provider: Sha Barbour. Score 1 min: 8. Score 5 min: 9. Second Stage Interventions : Reports: Pushing, Reverse Squat (Initially then moved to left side), Pushing Effectively, Pushing, Left Side. Delivery Comments (Free Text/Narrative):: Stage I: Diane Taylor was admitted for advanced spontaneous labor. On admission her cervix was dilated to 8 cm. She was GBS negative. She had spontaneous rupture of membranes. She progressed to complete and pushing. Stage II: On 07/08/2019 she had a normal vaginal delivery of a live female infant at 20:28. Apgars of 8 & 9. Weight and length unavailable at time of note. There was no nuchal cord. Infant was delivered in GINNY position. The cord was doubly clamped and cut by father of the after the cord had stopped pulsating after approximately 2 minutes. was placed on mother's abdomen. Stage III: She had a spontaneous delivery of an intact placenta in Cedric presentation. Three vessel cord. Examination of the placenta showed a small succenturiate lobe as well as velamentous cord insertion she was given pitocin and fundal massage. She had second-degree midline perineal laceration that was repaired with 3-0 Vicryl. Evaluation was performed to check for third-degree laceration due to history of third-degree laceration with episiotomy. Muscle capsule intact on exam. Mom and baby were stable to recovery. EBL of 300 mL. Diagnosis: Stroke: No - Discharge Data Discharge Date: 07/09/19 Discharge Disposition: Home, Self-Care 01 Condition: Good - Referral to Home Health Primary Care Physician: Sha Barbour MD - Discharge Diagnosis/Problem(s) (1) 39 weeks gestation of SNOMED Code(s): 80597273 ICD Code: Z3A.39 - 39 WEEKS GESTATION OF Status: Acute Current Visit: Yes (2) History of third degree perineal laceration SNOMED Code(s): 493601238 ICD Code: Z87.59 - PERSONAL HISTORY OF COMP OF PREG, CHLDBRTH AND THE PUERP Status: Acute Current Visit: Yes (3) History of vacuum extraction assisted delivery SNOMED Code(s): 021381872 ICD Code: Z87.59 - PERSONAL HISTORY OF COMP OF PREG, CHLDBRTH AND THE PUERP Status: Acute Current Visit: Yes (4) GERD (gastroesophageal reflux disease) SNOMED Code(s): 513818070 ICD Code: K21.9 - GASTRO-ESOPHAGEAL REFLUX DISEASE WITHOUT ESOPHAGITIS Status: Acute Current Visit: Yes (5) Vaginal delivery SNOMED Code(s): 722306893 ICD Code: O80 - ENCOUNTER FOR FULL-TERM UNCOMPLICATED DELIVERY Status: Acute Current Visit: Yes (6) Second degree perineal laceration during delivery SNOMED Code(s): 2741411 ICD Code: O70.1 - SECOND DEGREE PERINEAL LACERATION DURING DELIVERY Status : Acute Current Visit: Yes (7) Velamentous insertion of umbilical cord, third trimester SNOMED Code(s): 19297048, 85858417 ICD Code: O43.123 - VELAMENTOUS INSERTION OF UMBILICAL CORD, THIRD TRIMESTER Status: Acute Current Visit: Yes (8) Placenta succenturiata in third trimester SNOMED Code(s): 70006063, 66474995 ICD Code: O43.193 - OTHER MALFORMATION OF PLACENTA, THIRD TRIMESTER Status : Acute Current Visit: Yes - Patient Summary/Data Complications: None Consults: None Hospital Course: Diane Taylor was admitted for advanced labor. On admission her cervix was dilated to 8 cm. She was GBS negative. She had spontaneous rupture of membranes with clear fluid. She progressed to complete and began pushing. On she had a normal vaginal delivery of a live female at 20:28. Apgars of 8 and 9. Weight of 3370 g (7 pounds 6.9 ounces). Her course was uneventful. Her pain was well controlled and she had minimal lochia. She was ambulating, tolerating a regular diet and voiding normally. She was breast-feeding with minimal difficulty. She was afebrile and her hematocrit was 38.8 shortly after delivery. She desired to be discharged home on the evening of PPD #1. Her blood type is O+. - Patient Instructions Diet: Regular Diet as Tolerated Activity: Apply Ice, As Tolerated Activity, Other: Nothing in the vagina for 6 weeks Driving: May Drive Today Showering/Bathing: May Shower Notify Provider of: Fever, Increased Pain, Swelling and Redness, Drainage, Nausea and/or Vomiting Other/Special Instructions: Please contact your physician's office if you have heavy vaginal bleeding enough to soak a pad in less than an hour for several hours. Monitor for any signs of an infection in the breasts with severe pain or redness of the breast. - Discharge Plan *PRESCRIPTION DRUG MONITORING PROGRAM REVIEWED*: Not Applicable *COPY OF PRESCRIPTION DRUG MONITORING REPORT IN PATIENT ALICIA: Not Applicable Home Medications: Home Meds Vit Calc,Iron,Folic [ Vitamins] 1 tab PO DAILY 07/07/17 [ History] Acetaminophen [Tylenol] 650 mg PO Q6H PRN tablet 07/09/19 [Rx] Benzocaine/Menthol [Dermoplast Pain Relief [place]] 1 spray TOP ASDIRECTED PRN canister 07/09/19 [Rx] Docusate Sodium [Colace] 100 mg PO BID PRN cap 07/09/19 [Rx] Hydrocortisone Acetate [Anucort-HC] 25 mg RECTAL BID PRN supp 07/09/19 [Rx] Ibuprofen [Motrin] 600 mg PO Q6H PRN tablet 07/09/19 [Rx] Witch Olga [Tucks] 1 pad TOP ASDIRECTED PRN pad 07/09/19 [Rx] Patient Handouts: Vaginal Delivery, Care After, Care of a Perineal Tear Referrals: Jada Amato MD [Physician] - (Follow-up in 3 to 6 weeks for routine visit or earlier as needed.) - Discharge Summary/Plan Comment DC Time >30 min.: No - Patient Data Vitals - Most Recent: Last Vital Signs Temp 36.2 C 07/09/19 04:00 Pulse 83 07/09/19 04:00 Resp 14 07/09/19 04:00 BP 114/65 07/09/19 04:00 Pulse Ox 98 07/09/19 04:00 Weight - Most Recent: 67.585 kg I&O - Last 24 hours: Intake & Output 07/08/19 07/09/19 07/09/19 22:59 06:59 14:59 Intake Total 1000 Balance 1000 Lab Results - Last 24 hrs: Laboratory Results - last 24 hr 07/08/19 Range/Units 23:25 WBC 16.94 H (3.98-10.04) K/mm3 RBC 4.25 (3.98-5.22) M/mm3 Hgb 12.9 D (11.2-15.7) gm/dl Hct 38.8 (34.1-44.9) % MCV 91.3 (79.4-94.8) fl MCH 30.4 (25.6-32.2) pg MCHC 33.2 (32.2-35.5) g/dl RDW Std Deviation 42.5 (36.4-46.3) fL Plt Count 165 L (182-369) K/mm3 MPV 11.2 (9.4-12.3) fl Neutrophils % (Manual) 87 H (40-60) % Band Neutrophils % 0 (0-10) % Lymphocytes % (Manual) 10 L (20-40) % Atypical Lymphs % 0 % Monocytes % (Manual) 3 (2-10) % Eosinophils % (Manual) 0 L (0.7-5.8) % Basophils % (Manual) 0 L (0.1-1.2) Platelet Estimate Adequate RBC Morph Comment Normal Med Orders - Current: Current Medications Acetaminophen (Tylenol) 650 mg PO Q6H PRN PRN Reason: mild pain or fever Last Admin: 07/09/19 01:09 Dose: 650 mg Benzocaine/Menthol (Dermoplast Pain Relief [place]) 0 gm TOP ASDIRECTED PRN PRN Reason: Perineal Comfort Measure Docusate Sodium (Colace) 100 mg PO BID PRN PRN Reason: Constipation Hydrocortisone Acetate (Anucort-Hc) 25 mg RECTAL BID PRN PRN Reason: Hemorrhoid pain Oxytocin/Lactated Ringer's (Pitocin In Lr 10 Units/1,000 Ml) 10 unit in 1,000 mls @ 100 mls/hr IV TITRATE ADRIANA; Protocol Ibuprofen (Motrin) 600 mg PO Q6H PRN PRN Reason: Mild pain or fever Last Admin: 07/09/19 03:22 Dose: 600 mg Magnesium Hydroxide (Milk Of Magnesia) 30 ml PO BEDTIME PRN PRN Reason: Constipation Prenat Multivit/Welding Supervisor/Iron/Folic Ac ( Plus Iron) [address] [facility] Vasquez Espinoza (Tucks) 1 pad TOP ASDIRECTED PRN PRN Reason: Perineal Comfort Measure Discontinued Medications Lactated Ringer's (Ringers, Lactated) 1,000 mls @ 100 mls/hr IV ASDIRECTED ADRIANA Oxytocin/Lactated Ringer's (Pitocin In Lr 10 Units/1,000 Ml) 10 unit in 1,000 mls @ 500 mls/hr IV .CONTINUOUS ADRIANA Last Admin: 07/08/19 20:50 Dose: 500 mls/hr Lidocaine HCl (Xylocaine 1%) 50 ml INJECT ONETIME ONE Stop: 07/08/19 20:36 Last Admin: 07/08/19 20:36 Dose: 50 ml Nalbuphine HCl (Nubain) 10 mg IVPUSH Q2H PRN PRN Reason: Pain Sodium Chloride (Saline Flush) 10 ml FLUSH ASDIRECTED PRN PRN Reason: Keep Vein Open
[2019-07-09 22:37] VITALS: BP 110/73; PULSE 88
== END 2019-07-09 22:20 | disposition home or self-care (01) | DRG 560 ==
LOC: JD.OBCHECK 19:45 → JD.OB 19:45 → JD.OBCHECK 20:02 → JD.OB 20:03 → OBSVTOIN 20:28 → JD.OB 20:35
PROVIDERS: ADMIT Obstetrics & Gynecology; ATTEND Obstetrics & Gynecology
PROC: 10E0XZZ Delivery of Products of Conception, External Approach (ICD-10-PCS; principal; 2019-07-08)
PROC: 0KQM0ZZ Repair Perineum Muscle, Open Approach (ICD-10-PCS; 2019-07-08)
PROC: 3E0234Z Introduction of Serum, Toxoid and Vaccine into Muscle, Percutaneous Approach (ICD-10-PCS; 2019-07-09)
DX: O99.62 Diseases of the digestive system complicating childbirth (principal); O43.123 Velamentous insertion of umbilical cord, third trimester; O70.1 Second degree perineal laceration during delivery; K21.9 Gastro-esophageal reflux disease without esophagitis; O43.193 Other malformation of placenta, third trimester; Z3A.39 39 weeks gestation of pregnancy; Z37.0 Single live birth; Z23 Encounter for immunization
CPT/HCPCS: 36415; 59025; 59409; 85007; 85027; 86592; A9270-GY; J2001; J2590